=== PATIENT | female | born 1955 | race Caucasian/White ===

== ENCOUNTER → 2017-03-25 | Outpatient (CLI) | payer BC, OTHER ==
[~2017-03-25] MED LIST: SIMV20TA3 PO; simvastatin PO
== END | disposition home or self-care (01) ==
LOC: STAR 15:46
PROVIDERS: ATTEND Internal Medicine Geriatric Medicine
DX: Z01.818 Encounter for other preprocedural examination (principal); D12.0 Benign neoplasm of cecum; R19.4 Change in bowel habit; R19.5 Other fecal abnormalities; E78.5 Hyperlipidemia, unspecified
CPT/HCPCS: 93005

== ENCOUNTER 2017-03-31 09:08 | Day surgery (SDC) | payer BC, OTHER ==
[2017-03-25 15:51] VITALS: BP 153/104
[~2017-03-31] VITALS: Ht 167.6 cm; Wt 62.3 kg
[2017-03-31] MEDS ORDERED: LACTATED RINGERS 1,000 ML IV SCH (09:46)
[2017-03-31] MEDS ORDERED: LIDOCAINE 1%, 2ML ONE (09:50)
[2017-03-31] MEDS ORDERED: LIDOCAINE 1%, 2ML SQ PRN (10:00)
[2017-03-31] MEDS ORDERED: INDOCYANINE GREEN 25 MG VIAL ONE (10:58)
[2017-03-31] MEDS ORDERED: EPINEPHRINE SYRINGE 0.1 MG/ML, 10ML ONE (11:02)
[2017-03-31] MEDS ORDERED: PROMETHAZINE 25 MG/ML, 1ML IV PRN (12:30)
[2017-03-31] MEDS ORDERED: ONDANSETRON 2MG/ML, 2ML IVPush PRN (12:30)
[2017-03-31] MEDS ORDERED: LABETALOL 5MG/ML, 20ML IV PRN (12:30)
[2017-03-31] MEDS ORDERED: MEPERIDINE/PF 25MG/0.5ML IVPush PRN (12:30)
[2017-03-31] MEDS ORDERED: HYDROmorphone 1 MG/ML, 1ML IV PRN (12:30)
[2017-03-31] MEDS ORDERED: MIDAZOLAM 1 MG/ML, 2ML IV PRN (12:30)
[2017-03-31] MEDS ORDERED: OXYcodone 5 MG/5 ML ORAL.SOL UDC PO PRN (12:30)
[2017-03-31] MEDS ORDERED: hydrALAzine 20 MG/ML, 1ML IV PRN (12:30)
[2017-03-31] MEDS ORDERED: FENTANYL PF 100 MCG/2ML IV PRN (12:30)
[2017-03-31] MEDS ORDERED: ACETAMINOPHEN 325 MG TABLET PO PRN (12:30)
[2017-03-31] MEDS ORDERED: PROPOFOL 10 MG/ML, 50ML ONE (16:58)
== END 2017-03-31 15:10 ==
LOC: OUT 09:08
PROVIDERS: ATTEND Internal Medicine Geriatric Medicine
DX: D12.0 Benign neoplasm of cecum (principal); Z86.39 Personal history of other endocrine, nutritional and metabolic disease
CPT/HCPCS: 45390; 88305; J2704; J3490; J7120

== ENCOUNTER → 2017-04-23 | Outpatient (CLI) | payer OTHER | END | disposition home or self-care (01) | LOC: STAR 14:11 | PROVIDERS: ATTEND Internal Medicine Geriatric Medicine | DX: Z02.9 Encounter for administrative examinations, unspecified (principal) ==

== ENCOUNTER 2017-04-28 05:36 | Day surgery (SDC) | payer OTHER ==
[~2017-04-28] VITALS: Ht 167.6 cm; Wt 62.6 kg
[2017-04-28] MEDS ORDERED: LACTATED RINGERS 1,000 ML IV SCH (06:14)
[2017-04-28] MEDS ORDERED: INDOCYANINE GREEN 25 MG VIAL ONE (07:21)
[2017-04-28] MEDS ORDERED: EPINEPHRINE SYRINGE 0.1 MG/ML, 10ML ONE (07:21)
[2017-04-28] MEDS ORDERED: PROPOFOL 10 MG/ML, 50ML ONE (07:55)
[2017-04-28] MEDS ORDERED: hydrALAzine 20 MG/ML, 1ML IV PRN (10:30)
[2017-04-28] MEDS ORDERED: FENTANYL PF 100 MCG/2ML IV PRN (10:30)
[2017-04-28] MEDS ORDERED: MIDAZOLAM 1 MG/ML, 2ML IV PRN (10:30)
[2017-04-28] MEDS ORDERED: ALBUTEROL SULFATE 2.5 MG/3 ML NPPB PRN (10:30)
[2017-04-28] MEDS ORDERED: OXYcodone 5 MG/5 ML ORAL.SOL UDC PO PRN (10:30)
[2017-04-28] MEDS ORDERED: METOCLOPRAMIDE 5 MG/ML, 2ML IV PRN (10:30)
[2017-04-28] MEDS ORDERED: MEPERIDINE/PF 25MG/0.5ML IVPush PRN (10:30)
[2017-04-28] MEDS ORDERED: EPHEDRINE 50 MG/ML, 1ML IVPush PRN (10:30)
[2017-04-28] MEDS ORDERED: LABETALOL 5MG/ML, 20ML IV PRN (10:30)
[2017-04-28] MEDS ORDERED: ONDANSETRON 2MG/ML, 2ML IVPush PRN (10:30)
[2017-04-28] MEDS ORDERED: HYDROmorphone 1 MG/ML, 1ML IV PRN (10:30)
== END 2017-04-28 10:00 ==
LOC: OR 05:36 → OUT 10:00
PROVIDERS: ATTEND Internal Medicine Geriatric Medicine
DX: Z09 Encounter for follow-up examination after completed treatment for conditions other than malignant neoplasm (principal); D12.0 Benign neoplasm of cecum; Z87.891 Personal history of nicotine dependence; Z87.19 Personal history of other diseases of the digestive system
CPT/HCPCS: 45385; 88305; J2704; J7120

== ENCOUNTER 2017-07-09 06:03 | Inpatient (IN) | payer OTHER ==
[~2017-07-09] VITALS: Ht 167.6 cm; Wt 66.8 kg
[2017-07-09] MEDS ORDERED: LACTATED RINGERS 1,000 ML IV SCH (06:33)
[2017-07-09] MEDS ORDERED: EPINEPHRINE 1 MG/ML, 1ML ONE (06:57)
[2017-07-09] MEDS ORDERED: BUPIVACAINE/PF 0.5% ONE (06:57)
[2017-07-09] MEDS ORDERED: MIDAZOLAM 1 MG/ML, 2ML ONE (07:01)
[2017-07-09] MEDS ORDERED: FENTANYL PF 100 MCG/2ML ONE ×2 (07:01)
[2017-07-09] MEDS ORDERED: ROCURONIUM 10 MG/ML ONE ×2 (07:19→07:30)
[2017-07-09] MEDS ORDERED: PROPOFOL 10 MG/ML, 20ML ONE ×2 (07:19→07:30)
[2017-07-09] MEDS ORDERED: CEFOTETAN 2 GM ONE (07:19)
[2017-07-09] MEDS ORDERED: ONDANSETRON 2MG/ML, 2ML ONE ×2 (07:19→09:48)
[2017-07-09] MEDS ORDERED: DEXAMETHASONE 4 MG/ML, 1ML ONE ×2 (07:30)
[2017-07-09] MEDS ORDERED: BUPIVACAINE/PF-EPI 0.5% 1:200K IM ONE (07:37)
[2017-07-09] MEDS ORDERED: hydrALAzine 20 MG/ML, 1ML ONE (07:55)
[2017-07-09] MEDS ORDERED: ACETAMINOPHEN 325 MG TABLET PO PRN (08:00)
[2017-07-09] MEDS ORDERED: FENTANYL PF 100 MCG/2ML IV PRN (08:00)
[2017-07-09] MEDS ORDERED: MEPERIDINE/PF 25MG/0.5ML IVPush PRN (08:00)
[2017-07-09] MEDS ORDERED: LABETALOL 5MG/ML, 20ML IV PRN (08:00)
[2017-07-09] MEDS ORDERED: OXYcodone 5 MG/5 ML ORAL.SOL UDC PO PRN (08:00)
[2017-07-09] MEDS ORDERED: hydrALAzine 20 MG/ML, 1ML IV PRN (08:00)
[2017-07-09] MEDS ORDERED: HYDROmorphone 1 MG/ML, 1ML IV PRN (08:00)
[2017-07-09] MEDS ORDERED: PROMETHAZINE 25 MG/ML, 1ML IV PRN (08:00)
[2017-07-09] MEDS ORDERED: THROMBIN 5,000 UNIT VIAL TP ONE (08:38)
[2017-07-09] MEDS ORDERED: GLYCOPYRROLATE 0.4 MG/2 ML, 2ML ONE (08:43)
[2017-07-09] MEDS ORDERED: MEPERIDINE/PF 25MG/0.5ML ONE (09:47)
[2017-07-09] MEDS: ONDANSETRON 2MG/ML, 2ML IVPush PRN ×2 (09:49→09:50)
[2017-07-09] MEDS ORDERED: KETOROLAC 30 MG/1 ML ONE (09:58)
[2017-07-09] MEDS ORDERED: KETOROLAC 30 MG/1 ML IVPush ONE (10:00)
[2017-07-09] MEDS ORDERED: LORazepam 2 MG/ML, 1ML IV PRN (11:30)
[2017-07-09] MEDS ORDERED: POTASSIUM CHLORIDE 20 MEQ in SODIUM CHLORIDE 0.9% 1,000 ML IV SCH (11:30)
[2017-07-09] MEDS ORDERED: LORazepam 1MG TABLET PO PRN (11:30)
[2017-07-09] MEDS ORDERED: morphine SULFATE 10 MG/ML, 1ML IV PRN (11:30)
[2017-07-09] MEDS ORDERED: OXYcodone/APAP 5/325MG TABLET PO PRN (11:30)
[2017-07-09] MEDS ORDERED: ONDANSETRON 2MG/ML, 2ML IV PRN (11:30)
[2017-07-09 13:46] VITALS: BP 103/69
[2017-07-09] MEDS: KETOROLAC 30 MG/1 ML IV SCH ×2 (16:16→21:48)
[2017-07-09 19:27] VITALS: BP 113/69
[2017-07-09] MEDS: CEFOTETAN PMX 1GM/50ML 50 ML IVPB SCH (20:20)
[2017-07-09 23:26] VITALS: BP 102/62
[2017-07-10 03:43] VITALS: BP 113/67
[2017-07-10] MEDS: KETOROLAC 30 MG/1 ML IV SCH ×3 (04:04→18:57)
[2017-07-10 05:11] LABS: HEMATOCRIT 33.3 % (34.6-47.8); HEMOGLOBIN 11.3 g/dL (11.7-16.4); WHITE BLOOD COUNT 7.3 x10^3/uL (3.4-10)
[2017-07-10 05:19] LABS: BLOOD UREA NITROGEN 6 mg/dL (7-18)
[2017-07-10] MEDS: ENOXAPARIN 40 MG/0.4 ML SQ SCH (05:59)
[2017-07-10 07:01] VITALS: BP 111/70
[2017-07-10] MEDS: CEFOTETAN PMX 1GM/50ML 50 ML IVPB SCH (08:29)
[2017-07-10 13:13] VITALS: BP 107/69
[2017-07-10 20:56] VITALS: BP 121/72
[2017-07-10] MEDS ORDERED: SIMVASTATIN 20 MG TABLET PO SCH (21:00)
[2017-07-11 01:01] VITALS: BP 112/71
[2017-07-11] MEDS: KETOROLAC 30 MG/1 ML IV SCH ×2 (01:12→06:34)
[2017-07-11 04:56] LABS: BLOOD UREA NITROGEN 10 mg/dL (7-18)
[2017-07-11 04:59] LABS: HEMATOCRIT 30.9 % (34.6-47.8); HEMOGLOBIN 10.4 g/dL (11.7-16.4); WHITE BLOOD COUNT 5.4 x10^3/uL (3.4-10)
[2017-07-11] MEDS: ENOXAPARIN 40 MG/0.4 ML SQ SCH (06:02)
[2017-07-11] MEDS ORDERED: FLU VACC QS2017-18 (36MOS+) UP/PF 0.5 ML IM-VACC ONE (06:30)
[2017-07-11 08:18] VITALS: BP 120/77
[2017-07-11] MEDS ORDERED: OXYC-302 PO (09:03)
== END 2017-07-11 10:05 | disposition home or self-care (01) | DRG 331 ==
LOC: ORIP 06:03 → 4NOR 10:28
PROVIDERS: ADMIT Colon & Rectal Surgery; ATTEND Colon & Rectal Surgery
PROC: 0DTF4ZZ Resection of Right Large Intestine, Percutaneous Endoscopic Approach (ICD-10-PCS; principal; 2017-07-09 07:30)
DX: D12.2 Benign neoplasm of ascending colon (principal); D12.0 Benign neoplasm of cecum
CPT/HCPCS: 36415; 80048; 82040; 83735; 85025; 86850; 86900; 88307; 90686; J0171; J1100; J1650; J1885; J2175; J2250; J2405; J2704; J3010; J3480; J3490; J0360; J7030; J7120; S0074

== ENCOUNTER 2017-07-11 15:53 | Inpatient (IN) | payer OTHER ==
[~2017-07-11] VITALS: Ht 167.6 cm; Wt 67.0 kg
[~2017-07-11 15:53] MED LIST changes: +OXYC-302 PO
[2017-07-11] MEDS ORDERED: SODIUM CHLORIDE FLUSH 10ML SYR IVF ONE (17:00)
[2017-07-11 18:44] LABS: HEMATOCRIT 30.2 % (34.6-47.8); HEMOGLOBIN 10.1 g/dL (11.7-16.4); WHITE BLOOD COUNT 7.6 x10^3/uL (3.4-10)
[2017-07-11 18:47] LABS: ASPARTATE AMINO TRANSFERASE 19 U/L (15-37); BLOOD UREA NITROGEN 11 mg/dL (7-18)
[2017-07-11] MEDS ORDERED: OMNIPAQUE 350 MG/ML, 100ML BOTTLE ONE (19:30)
[2017-07-11] MEDS ORDERED: SODIUM CHLORIDE 0.9% 1,000 ML IV ONE (20:05)
[2017-07-11] MEDS ORDERED: MORPHINE SULFATE 4 MG/ML, 1ML IVPush PRN (20:30)
[2017-07-11] MEDS ORDERED: SODIUM CHLORIDE FLUSH 10ML SYR IVF PRN (20:30)
[2017-07-11] MEDS ORDERED: ONDANSETRON 2MG/ML, 2ML IVPush PRN ×2 (20:30→22:00)
[2017-07-11 21:00] VITALS: BP 117/75
[2017-07-11] MEDS ORDERED: morphine SULFATE 10 MG/ML, 1ML IVPush PRN (22:00)
[2017-07-11 23:33] LABS: HEMATOCRIT 23.4 % (34.6-47.8); WHITE BLOOD COUNT 5.4 x10^3/uL (3.4-10)
[2017-07-12] MEDS: D5%-0.45% NACL 1,000 ML IV SCH ×3 (00:19→17:12)
[2017-07-12 00:41] VITALS: BP 117/75
[2017-07-12 01:15] VITALS: BP 92/62
[2017-07-12 07:03] LABS: HEMATOCRIT 22.3 % (34.6-47.8); HEMOGLOBIN 7.3 g/dL (11.7-16.4); WHITE BLOOD COUNT 4.5 x10^3/uL (3.4-10)
[2017-07-12 07:30] VITALS: BP 114/71
[2017-07-12 13:34] VITALS: BP 107/72
[2017-07-12 15:14] LABS: HEMATOCRIT 23.1 % (34.6-47.8); HEMOGLOBIN 7.6 g/dL (11.7-16.4); WHITE BLOOD COUNT 7.7 x10^3/uL (3.4-10)
[2017-07-12 19:49] VITALS: BP 108/73
[2017-07-13] MEDS: D5%-0.45% NACL 1,000 ML IV SCH ×2 (00:31→08:52)
[2017-07-13 04:02] VITALS: BP 117/74
[2017-07-13 04:51] LABS: HEMOGLOBIN 7.7 g/dL (11.7-16.4); WHITE BLOOD COUNT 5.5 x10^3/uL (3.4-10)
[2017-07-13 04:56] LABS: HEMATOCRIT 22.8 % (34.6-47.8)
[2017-07-13 07:09] VITALS: BP 112/72
[2017-07-13 13:08] VITALS: BP 124/81
[2017-07-13 19:56] VITALS: BP 123/80
[2017-07-14 04:45] VITALS: BP 116/63
[2017-07-14 04:56] LABS: HEMOGLOBIN 7.5 g/dL (11.7-16.4)
[2017-07-14 04:58] LABS: HEMATOCRIT 21.6 % (34.6-47.8)
[2017-07-14 07:23] VITALS: BP 110/57
[2017-07-14] MEDS ORDERED: FERR325T18 PO (09:25)
== END 2017-07-14 09:34 | disposition home or self-care (01) | DRG 920 ==
LOC: ED 20:21 → EDIP 20:25 → 4NOR 21:10 → DCLOUNGE 07-14 09:34
PROVIDERS: ADMIT Surgery; ATTEND Surgery
DX: K91.840 Postprocedural hemorrhage of a digestive system organ or structure following a digestive system procedure (principal); K92.2 Gastrointestinal hemorrhage, unspecified; D50.0 Iron deficiency anemia secondary to blood loss (chronic); Y83.8 Other surgical procedures as the cause of abnormal reaction of the patient, or of later complication, without mention of misadventure at the time of the procedure; Y92.89 Other specified places as the place of occurrence of the external cause
CPT/HCPCS: 36415; 74177; 80053; 83605; 85025; 85610; 85730; 99285; Q9967; J7030

== ENCOUNTER → 2017-08-14 | Outpatient (CLI) | payer OTHER ==
[~2017-08-14] MED LIST changes: +FERR325T18 PO
== END | disposition home or self-care (01) ==
LOC: CFH 08:10
PROVIDERS: ATTEND Family Medicine
DX: Z12.2 Encounter for screening for malignant neoplasm of respiratory organs (principal); J44.9 Chronic obstructive pulmonary disease, unspecified; Z87.891 Personal history of nicotine dependence
CPT/HCPCS: G0297

== ENCOUNTER → 2020-08-27 | Outpatient (CLI) | payer MEDICARE, OTHER ==
[~2020-08-27] MED LIST changes: +SIMV20TA19 PO; -SIMV20TA3 PO
== END | disposition home or self-care (01) ==
LOC: CFH 08:04
PROVIDERS: ATTEND Family Medicine
DX: Z12.31 Encounter for screening mammogram for malignant neoplasm of breast (principal); Z12.2 Encounter for screening for malignant neoplasm of respiratory organs; N95.9 Unspecified menopausal and perimenopausal disorder; M81.0 Age-related osteoporosis without current pathological fracture; J98.4 Other disorders of lung; J43.9 Emphysema, unspecified; Z87.891 Personal history of nicotine dependence
CPT/HCPCS: 77063; 77067; 77080; G0297